=== PATIENT | female | born 1965 | race Caucasian/White ===

== ENCOUNTER → 2017-04-21 15:13 | Emergency (ER) | payer BC ==
--- NOTE | 2017-04-21 18:48 | RAD ---
HISTORY: Swelling, history of pulmonary embolism COMPARISONS: None relevant TECHNIQUE: Multiple transverse and longitudinal ultrasound images were obtained of the left lower extremity from the level of the common femoral vein inferiorly through to the infrapopliteal veins using grayscale, color Doppler, and spectral Doppler imaging with and without compression and with augmentation. Comparison images were obtained of the contralateral common femoral vein. FINDINGS: VEINS: The venous system of the left lower extremity is compressible throughout its course, with normal flow on color Doppler imaging and normal response to augmentation on spectral Doppler imaging. SOFT TISSUES: Unremarkable. OTHER FINDINGS: None. IMPRESSION: NO LEFT LOWER EXTREMITY DEEP VEIN THROMBOSIS
[2017-04-21 18:52] VITALS: BP 139/81
--- NOTE | 2017-04-22 13:04 | ED ---
ruben Edwards Timothy, scribed for Naveen Salinas MD on 04/21/17 at 1847 . Lower Extremity - HPI Summary HPI Summary: Kenia Lamar is a 51 yo female presenting to [facility] for rule out of a DVT in her left calf. P awoke 04/20/17 morning with 2/10 pain in her left calf which has gotten progressively worse since then. She states it hurts to walk. She notes pain and swelling with new superficial varicose veins. Her MHx includes DVT, tubal ligation, skin CA 2009, tobacco use. - History of Current Complaint Chief Complaint: EDExtremityLower Stated Complaint: PAIN/SWELLING LEFT CALF Time Seen by Provider: 04/21/17 17:59 Hx Obtained From: Patient Mechanism Of Injury: Unknown Onset/Duration: Days Severity Initially: Moderate Severity Currently: Moderate Pain Intensity: 2 Pain Scale Used: 0-10 Numeric Timing: Constant Location: Is Discrete @ - LLE Associated Signs And Symptoms: Positive: Swelling Aggravating Factor(s): Standing, Ambulation, Weight Bearing Alleviating Factor(s): Rest - Allergies/Home Medications Allergies/Adverse Reactions: Allergies Allergy/AdvReac Type Severity Reaction Status Date / Time Penicillins Allergy Hives Verified 10/24/14 15:06 PMH/Surg Hx/FS Hx/Imm Hx Endocrine/Hematology History: Denies: Hx Diabetes Cardiovascular History: Reports: Hx Deep Vein Thrombosis, Other Cardiovascular Problems/Disorders - HX OF PE Denies: Hx Congestive Heart Failure History: Denies: Hx Renal Disease - Cancer History Cancer Type, Location and Year: SKIN CA Hx Chemotherapy: No Hx Radiation Therapy: No - Surgical History Surgery Procedure, Year, and Place: ENDOMETRIAL SURG - Immunization History Date of Tetanus Vaccine: no Date of Influenza Vaccine: 2011 Infectious Disease History: No Infectious Disease History: Denies: Traveled Outside the [place] in Last 30 Days - Social History Alcohol Use: social drinker Substance Use Type: Reports: None Smoking Status (MU): Never Smoked Tobacco Review of Systems Constitutional: Negative Eyes: Negative ENT: Negative Cardiovascular: Negative Respiratory: Negative Gastrointestinal: Negative Genitourinary: Negative Musculoskeletal: Other - LLE swelling and pain Skin: Negative Neurological: Negative Psychological: Normal All Other Systems Reviewed And Are Negative: Yes Physical Exam Triage Information Reviewed: Yes Vital Signs On Initial Exam: Initial Vitals Temp Pulse Resp BP Pulse Ox 97.6 F 100 20 139/89 99 04/21/17 15:31 04/21/17 15:31 04/21/17 15:31 04/21/17 15:31 04/21/17 15:31 Vital Signs Reviewed: Yes Appearance: Positive: Well-Appearing, No Pain Distress, Well-Nourished Skin: Positive: Warm, Skin Color Reflects Adequate Perfusion, Dry Head/Face: Positive: Normal Head/Face Inspection Eyes: Positive: Normal ENT: Positive: Normal ENT inspection Neck: Positive: Supple, Nontender Respiratory/Lung Sounds: Positive: Clear to Auscultation, Breath Sounds Present Cardiovascular: Positive: RRR Abdomen Description: Positive: Nontender, Soft Bowel Sounds: Positive: Present Musculoskeletal: Positive: Other - tender at proximal left calf Neurological: Positive: Normal Psychiatric: Positive: Normal, Affect/Mood Appropriate - Juwan Coma Scale Coma Scale Total: 15 Diagnostics - Vital Signs Vital Signs Temp Pulse Resp BP Pulse Ox 04/21/17 17:39 132/86 04/21/17 17:38 92 98 04/21/17 15:34 98.4 F 94 20 139/89 100 04/21/17 15:31 97.6 F 100 20 139/89 99 - Laboratory Lab Statement: Any lab studies that have been ordered have been reviewed, and results considered in the medical decision making process. - Ultrasound No standard instances Ultrasound Interpretation: No Acute Changes - IMPRESSION: NO LEFT LOWER EXTREMITY DEEP VEIN THROMBOSIS Ultrasound Interpretation Completed By: Radiologist - LLE US Lower Extremity Course/Dx - Course Assessment/Plan: Kenia Lamar is a 51 yo female presenting to [facility] for r/o DVT in her LLE. Her LLE US is negative for DVT. After clinical examination and review of her imaging study results, she will be discharged home with muscle strain with appropriate instructions. - Diagnoses Provider Diagnoses: Muscle strain Discharge - Discharge Plan Condition: Stable Disposition: HOME Patient Education Materials: Muscle Strain (ED) Referrals: Yani Fonseca MD [Primary Care Provider] - 2 Days Additional Instructions: Please follow up with your primary care physician regarding your visit to the emergency department today. Return to the emergency department with any new or recurring symptoms. The documentation as recorded by the ruben gusman Timothy accurately reflects the service I personally performed and the decisions made by me, Naveen Salinas MD.
== END | disposition home or self-care (01) ==
LOC: ED 15:13
DX: S86.912A Strain of unspecified muscle(s) and tendon(s) at lower leg level, left leg, initial encounter (principal); X58.XXXA Exposure to other specified factors, initial encounter; Y93.9 Activity, unspecified; Y92.9 Unspecified place or not applicable
CPT/HCPCS: 99282

== ENCOUNTER 2017-10-25 15:53 | Emergency (ER) | payer BC ==
[2017-10-25 16:16] VITALS: BP 130/86
--- NOTE | 2017-10-25 17:22 | UC ---
Throat Pain/Nasal Alvaro HPI - HPI Summary HPI Summary: Pt presents with dry cough and sinus congestion for 2 days. She tells me that everyone at work has recently been sick with similar symptoms. She has not tried anything OTC. Denies fever, chills, SOB, chest pain, abdominal pain, ST, N /V/D/C - History of Current Complaint Hx Obtained From: Patient Onset/Duration: Gradual Onset Severity: Mild Pain Intensity: 4 Pain Scale Used: 0-10 Numeric Cough: Nonproductive <Aneesh Jean-Baptiste - Last Filed: 10/25/17 19:18> <Sushma Ricnon - Last Filed: 10/25/17 20:57> - History of Current Complaint Chief Complaint: UCRespiratory Stated Complaint: URI Time Seen by Provider: 10/25/17 17:22 - Allergies/Home Medications Allergies/Adverse Reactions: Allergies Allergy/AdvReac Type Severity Reaction Status Date / Time Penicillins Allergy Hives Verified 10/25/17 16:16 latex Allergy Intermediate Itching Uncoded 10/25/17 16:16 Home Medications: Home Medications metFORMIN* [Glucophage 500 MG TAB *] 1 tab PO TID 10/25/17 [History Confirmed ] PMH/Surg Hx/FS Hx/Imm Hx Previously Healthy: Yes Endocrine History: Diabetes - Surgical History Surgical History: Yes Surgery Procedure, Year, and Place: ENDOMETRIAL SURG - Family History Known Family History: Positive: Unknown - Social History Occupation: Employed Full-time Lives: With Family Alcohol Use: Rare Substance Use Type: None Smoking Status (MU): Former Smoker Type: Cigarettes Amount Used/How Often: 1 pack/day Length of Time of Smoking/Using Tobacco: 36 years Have You Smoked in the Last Year: No When Did the Patient Quit Smoking/Using Tobacco: 11/07/06 <Aneesh Jean-Baptiste - Last Filed: 10/25/17 19:18> Review of Systems Constitutional: Negative Skin: Negative Eyes: Negative ENT: Nasal Discharge, Sinus Congestion, Sinus Pain/Tenderness Respiratory: Cough Cardiovascular: Negative Gastrointestinal: Negative Neurological: Negative Psychological: Negative All Other Systems Reviewed And Are Negative: Yes <Aneesh Jean-Baptiste - Last Filed: 10/25/17 19:18> Physical Exam Triage Information Reviewed: Yes Appearance: Well-Appearing, Well-Nourished Vital Signs: Initial Vital Signs Temp 98.6 F 10/25/17 16:14 Pulse 81 10/25/17 16:14 Resp 18 10/25/17 16:14 BP 130/86 10/25/17 16:14 Pulse Ox 100 10/25/17 16:14 Vital Signs Reviewed: Yes Eyes: Positive: Conjunctiva Clear. Negative: Conjunctiva Inflamed, Discharge ENT: Positive: Hearing grossly normal, Pharynx normal, Nasal congestion, TMs normal, Uvula midline. Negative: Pharyngeal erythema, Nasal drainage, TM bulging, TM dull, TM red, Tonsillar swelling, Tonsillar exudate, Hoarse voice, Sinus tenderness Neck: Positive: Supple, Nontender, No Lymphadenopathy Respiratory: Positive: Chest non-tender, Lungs clear, Normal breath sounds, No respiratory distress, No accessory muscle use Cardiovascular: Positive: RRR, No Murmur, Pulses Normal Neurological: Positive: Alert Psychological: Positive: Age Appropriate Behavior Skin: Negative: rashes <Aneesh Jean-Baptiste - Last Filed: 10/25/17 19:18> Vital Signs: Initial Vital Signs Temp 98.6 F 10/25/17 16:14 Pulse 81 10/25/17 16:14 Resp 18 10/25/17 16:14 BP 130/86 10/25/17 16:14 Pulse Ox 100 10/25/17 16:14 <Sushma Rincon - Last Filed: 10/25/17 20:57> Throat Pain/Nasal Course/Dx - Course Course Of Treatment: Suspect bronchitis with potential viral sinusitis. Reassured pt that there is no indicated for an antibiotic at this time and recommended conservative measures such as Mucinex OTC twice a day. She was agreeable to this plan. Will rx for tessalon for the cough. - Differential Dx/Diagnosis Differential Diagnosis/HQI/PQRI: Mononucleosis, Otitis Media, Sinusitis, Tonsillitis, URI Provider Diagnoses: Bronchitis. Viral sinusitis <Aneesh Jean-Baptiste - Last Filed: 10/25/17 19:18> Discharge <Aneesh Jean-Baptiste - Last Filed: 10/25/17 19:18> <Sushma Rincon - Last Filed: 10/25/17 20:57> - Discharge Plan Condition: Stable Disposition: HOME Prescriptions: Benzonatate CAP* [Tessalon 100 MG CAP*] 100 mg PO TID PRN #30 cap PRN Reason: Cough Patient Education Materials: Acute Bronchitis (ED) Referrals: Yani Fonseca MD [Primary Care Provider] - Additional Instructions: If you develop a fever, SOB, chest pain, new or worsening symptoms - please call your PCP or go to the ED. Attestation Statement User Type: Provider - I was available for consult. This patient was seen by the [facility]. The patient was not presented to, seen by, or examined by me. -Bonny <Sushma Rincon - Last Filed: 10/25/17 20:57>
== END 2017-10-25 17:46 | disposition home or self-care (01) ==
LOC: UCEAST 15:53
DX: J40 Bronchitis, not specified as acute or chronic (principal); J32.8 Other chronic sinusitis; B34.9 Viral infection, unspecified; Z87.891 Personal history of nicotine dependence; E11.9 Type 2 diabetes mellitus without complications; Z79.84 Long term (current) use of oral hypoglycemic drugs
CPT/HCPCS: 99212; G0463

== ENCOUNTER 2021-02-18 05:43 | Inpatient (IN) ==
[2021-02-18] MEDS ORDERED: Sodium Citrate/Citric Acid LIQ 15 ML UDC PO ONE (06:00)
[2021-02-18] MEDS ORDERED: Buffered Lidocaine 1% SYRIN 1 ml INTRADERM ONE (06:00)
[2021-02-18] MEDS ORDERED: Lactated Ringers 1000 ml BAG 1,000 ML IV SCH (06:00)
[2021-02-18] MEDS ORDERED: Heparin 5000 UNITS/ML 1 mL VIAL ONE (06:45)
[2021-02-18] MEDS ORDERED: Clindamycin 900 MG/D5W BAG 900 MG/50 ML BAG IVPB ONE (06:46)
[2021-02-18] MEDS ORDERED: Sodium Citrate/Citric Acid LIQ 15 ML UDC ONE (06:46)
[2021-02-18] MEDS ORDERED: fentaNYL 250 mcg/5 ml 50 MCG/ML 5 ml VIAL (250 MCG) ONE (07:06)
[2021-02-18] MEDS ORDERED: Bupivacaine 0.25% SDV 30 ML ONE (07:06)
[2021-02-18] MEDS ORDERED: Rocuronium 50 mg VIAL 10 mg/ml 5 ml VIAL (50 mg) ONE (07:06)
[2021-02-18] MEDS ORDERED: Propofol 10 MG/ML 20 ML BTL ONE (07:07)
[2021-02-18] MEDS ORDERED: Dexamethasone IV 4 MG/ML VIAL 1 ml VIAL ONE (07:07)
[2021-02-18] MEDS ORDERED: Ondansetron 4 mg VIAL 2 MG/ML 2 ml VIAL ONE ×2 (07:07→11:27)
[2021-02-18] MEDS ORDERED: Midazolam 2 mg/2 ml VIAL 1 mg/ml 2 ml VIAL (2 mg) ONE (07:07)
[2021-02-18] MEDS ORDERED: Lidocaine 2% PF 5 ML VIAL ONE (07:08)
[2021-02-18] MEDS ORDERED: Acetaminophen IV 1 GM/100ML 1,000 MG/100 ML VIAL IVPB PRN (08:33)
[2021-02-18] MEDS ORDERED: Ondansetron 4 mg VIAL 2 MG/ML 2 ml VIAL IV PRN ×2 (08:33→09:50)
[2021-02-18] MEDS ORDERED: DiMENhydriNATE IV 50 mg/ml 1 ml VIAL IV PUSH PRN (08:33)
[2021-02-18] MEDS ORDERED: Naloxone 0.4 mg VIAL 0.4 mg/ml 1 ml VIAL IV PRN (08:33)
[2021-02-18] MEDS ORDERED: Phenylephrine 40 mcg/mL 10mL (400mcg) SYRINGE ONE (08:43)
[2021-02-18] MEDS ORDERED: Sugammadex 500 MG/5 ML 5 ml VIAL IV PUSH ONE ×2 (08:57→09:31)
[2021-02-18] MEDS ORDERED: Acetaminophen IV 1 GM/100ML 100 ML ONE (08:58)
[2021-02-18] MEDS ORDERED: Sevoflurane BOTTLE ONE (09:09)
[2021-02-18] MEDS ORDERED: HYDROmorphone 1 MG/1 ML SYRINGE ONE (09:55)
[2021-02-18] MEDS: HYDROmorphone 1 MG/1 ML SYRINGE IV PRN ×5 (09:56→10:37)
[2021-02-18] MEDS ORDERED: diPHENhydraMINE IV 50 MG/ML 1 ml VIAL (BENADRYL) SLOW PUSH PRN (09:58)
[2021-02-18] MEDS ORDERED: HYDROmorphone 0.5 MG/0.5 ML SYRINGE IV SLOW PU PRN (09:58)
[2021-02-18] MEDS ORDERED: HYDROcodone/ACET. 7.5/325 LIQ 15 ML UDC PO PRN (09:58)
[2021-02-18] MEDS ORDERED: fentaNYL 100 mcg/2 ml 50 MCG/ML VIAL ONE (10:12)
[2021-02-18] MEDS: fentaNYL 100 mcg/2 ml 50 MCG/ML VIAL IV PRN ×3 (10:14→10:33)
[2021-02-18] MEDS: HYDROmorphone 1 MG/1 ML SYRINGE IV SLOW PU PRN ×2 (12:46→15:52)
[2021-02-18] MEDS: Lactated Ringers 1000 ml BAG 1,000 ML IV SCH (21:13)
[2021-02-18] MEDS: Famotidine IV 10 MG/ML 2 ml VIAL (20 mg) IV SLOW PU SCH (21:23)
[2021-02-18] MEDS: Heparin 5000 UNITS/ML 1 mL VIAL SUBCUT SCH (21:26)
[2021-02-19] MEDS: Lactated Ringers 1000 ml BAG 1,000 ML IV SCH (03:52)
[2021-02-19] MEDS: Heparin 5000 UNITS/ML 1 mL VIAL SUBCUT SCH ×2 (06:03→14:07)
[2021-02-19] MEDS: Famotidine IV 10 MG/ML 2 ml VIAL (20 mg) IV SLOW PU SCH (08:10)
[2021-02-19] MEDS ORDERED: D5W 1/2 NS KCl 20 meq 1000 ml 1,000 ML IV SCH (10:00)
[2021-02-19 16:35] VITALS: BP 132/77
== END 2021-02-19 18:00 | disposition home or self-care (01) | DRG 951 ==
LOC: AA 05:43 → SSU 12:18
PROVIDERS: ADMIT Surgery; ATTEND Surgery

== ENCOUNTER 2024-02-17 13:46 | Observation (INO) ==
[2024-02-17] MEDS: Morphine 4 MG/ML VIAL (1 ml) IV ONE ×2 (16:06→20:27)
[2024-02-17 16:27] LABS: ABS Eosinophils 0.1 10^3/uL (0.0-0.5); ABS Lymphocytes 1.6 10^3/uL (1.0-4.8); ABS Monocytes 0.8 10^3/uL (0.0-0.9); ABS Neutrophils 6.7 10^3/uL (1.5-7.6); ABS Nucleated RBC 0.01 10^3/ul; Eosinophil % 0.7 %; Hematocrit 41.1 % (35-45); Hemoglobin 14.6 g/dL (11.5-14.3); Lymphocyte % 17.4 %; Mean Corpuscular Hemoglobin 31.9 pg (27-33); Mean Corpuscular Hgb Conc 35.4 g/dL (31-36); Mean Platelet Volume 7.4 fL (7.5-11.2); Nucleated Red Blood Cells % 0.1 %/100WBC (0.0-0.8); Platelet Count 196 10^3/uL (150-450); Red Blood Count 4.57 10^6/uL (3.63-4.92); Red Cell Distribution Width 13.6 % (12-17); White Blood Count 9.1 10^3/uL (3.8-11.8)
[2024-02-17 16:49] LABS: Albumin 4.1 g/dL (3.2-5.2); Albumin/Globulin Ratio 1.5 (1-3); Calcium 9.6 mg/dL (8.6-10.3); Creatinine, Serum 0.92 mg/dL (0.51-0.95); Globulin 2.8 g/dL (2-4); Potassium 4.1 mmol/L (3.5-5.0); Total Bilirubin 0.6 mg/dL (0.2-1.0); Total Protein 6.9 g/dL (6.4-8.9); eGFR CKD-EPI 72.6 (>60)
[2024-02-17] MEDS: oxyCODONE SR 10 mg TAB PO ONE (16:54)
[2024-02-17] MEDS: Lactated Ringers 1000 ml BAG 1,000 ML IV ONE ×2 (18:32→20:28)
[2024-02-17 19:05] LABS: Urine Appearance Turbid; Urine Bilirubin Negative (Negative); Urine Blood 2+ (Negative); Urine Color Light-Yellow; Urine Glucose 1+ (>=70 mg/dL) (Negative); Urine Ketones Negative (Negative); Urine Nitrite Negative (Negative); Urine Protein Trace (Negative); Urine Urobilinogen Negative (Negative); Urine pH 7.5 (5.0-8.0)
[2024-02-17 19:38] LABS: Urine Bacteria Absent /HPF (Absent); Urine Red Blood Cell 3+(>10/hpf) /HPF (0-Trace); Urine White Blood Cell Absent /HPF (0-Trace)
[2024-02-17] MEDS ORDERED: Metoclopramide 5 MG/ML VIAL (10 mg) IV PRN (20:19)
[2024-02-17] MEDS: cefTRIAXone 1 gm/50 mL D5W 1 GM/50 ML BAG IV ONE (20:28)
[2024-02-17] MEDS ORDERED: Morphine 2 MG/ML SYRINGE IV PRN (21:38)
[2024-02-17] MEDS ORDERED: Dextrose 50% Syringe 50 ml 25 GM/50 ML SYRINGE IV PUSH PRN (22:01)
[2024-02-17] MEDS: Lactated Ringers 1000 ml BAG 1,000 ML IV SCH (22:12)
[2024-02-17] MEDS: Calcium Carb (TUMS) 500 mg CHEW TAB PO ONE (23:01)
[2024-02-18 04:41] LABS: ABS Eosinophils 0.2 10^3/uL (0.0-0.5); ABS Lymphocytes 1.4 10^3/uL (1.0-4.8); ABS Monocytes 0.6 10^3/uL (0.0-0.9); ABS Neutrophils 3.2 10^3/uL (1.5-7.6); ABS Nucleated RBC 0.01 10^3/ul; Eosinophil % 3.6 %; Hematocrit 35.2 % (35-45); Hemoglobin 12.2 g/dL (11.5-14.3); Lymphocyte % 25.5 %; Mean Corpuscular Hemoglobin 31.8 pg (27-33); Mean Corpuscular Hgb Conc 34.8 g/dL (31-36); Mean Corpuscular Volume 91.5 fL (80-97); Mean Platelet Volume 6.9 fL (7.5-11.2); Nucleated Red Blood Cells % 0.2 %/100WBC (0.0-0.8); Platelet Count 133 10^3/uL (150-450); Red Blood Count 3.84 10^6/uL (3.63-4.92); Red Cell Distribution Width 13.8 % (12-17); White Blood Count 5.4 10^3/uL (3.8-11.8)
[2024-02-18 05:40] LABS: Calcium 8.4 mg/dL (8.6-10.3); Creatinine, Serum 0.77 mg/dL (0.51-0.95); Magnesium 1.7 mg/dL (1.9-2.7); Potassium 3.5 mmol/L (3.5-5.0); eGFR CKD-EPI 89.9 (>60)
[2024-02-18] MEDS: Acetaminophen IV 1 GM/100ML 1,000 MG/100 ML BAG IV PRN (09:44)
[2024-02-18] MEDS ORDERED: Dextrose 50% Syringe 50 ml 25 GM/50 ML SYRINGE ONE (11:00)
[2024-02-18] MEDS: Dextrose 50% Syringe 50 ml 25 GM/50 ML SYRINGE IV PUSH PRN (11:10)
[2024-02-18] MEDS ORDERED: Naloxone 0.4 mg VIAL 0.4 mg/ml 1 ml VIAL IV PRN ×2 (11:13→11:16)
[2024-02-18] MEDS ORDERED: fentaNYL 100 mcg/2 ml 50 MCG/ML VIAL IV PRN (11:16)
[2024-02-18] MEDS ORDERED: Clindamycin 900 MG/50 **NS BAG 900 MG/50 ML BAG ONE (11:19)
[2024-02-18] MEDS ORDERED: fentaNYL 100 mcg/2 ml 50 MCG/ML VIAL ONE (11:52)
[2024-02-18] MEDS ORDERED: Propofol 10 MG/ML 20 ML BTL ONE (11:52)
[2024-02-18] MEDS ORDERED: Midazolam 2 mg/2 ml VIAL 1 mg/ml 2 ml VIAL (2 mg) ONE (11:52)
[2024-02-18] MEDS ORDERED: Lidocaine 2% PF 5 ML VIAL ONE (11:52)
[2024-02-18] MEDS: Gentamicin ADULT 250 MG in NS 0.9% 100 ml BAG 100 ML IVPB ONE (12:59)
[2024-02-18 13:18] VITALS: BP 96/71
[2024-02-18] MEDS ORDERED: cefTRIAXone 1 gm/50 mL D5W 1 GM/50 ML BAG IV SCH (20:00)
== END 2024-02-18 14:35 | disposition home or self-care (01) ==
LOC: EDHOLD 13:46 → ED 13:46 → SUATTDRO 20:15 → SSU 02-18 09:48
PROVIDERS: ADMIT Internal Medicine; ATTEND Internal Medicine Hematology & Oncology